=== PATIENT | female | born 1975 | race Caucasian/White ===

== ENCOUNTER 2019-08-04 17:31 | Emergency (ER) | payer BC, OTHER ==
[2019-08-04 17:37] VITALS: BP 122/101
[2019-08-04] MEDS ORDERED: OXYCODONE-ACETAMINOPHEN 5-325 MG TABLET PO ONE (18:07)
--- NOTE | 2019-08-04 18:09 | ER Document Report ---
HPI - HPI Time Seen by Provider: 08/04/19 17:59 Pain Level: 5 Notes: 43-year-old female patient requesting medication refill on her oxycodone. Patient reports she takes 20 mg 4 times daily. She states that she usually sees pain management for this. States she is in between pain management doctors. Denies any medical complaints today. - REPRODUCTIVE Reproductive: DENIES: : Past Medical History - General Information source: Patient - Social History Smoking Status: Never Smoker Family History: Reviewed & Not Pertinent Patient has suicidal ideation: No Patient has homicidal ideation: No - Medical History Medical History: Negative Surgical Hx: Negative - Immunizations Immunizations up to date: Yes Vertical Provider Document - CONSTITUTIONAL Notes: PHYSICAL EXAMINATION: GENERAL: Well-appearing, well-nourished and in no acute distress. HEAD: Atraumatic, normocephalic. EYES: Pupils equal round extraocular movements intact, conjunctiva are normal. ENT: Nares patent NECK: Normal range of motion LUNGS: No respiratory distress Musculoskeletal: Normal range of motion NEUROLOGICAL: Normal speech, normal gait. PSYCH: Normal mood, normal affect. SKIN: Warm, Dry, normal turgor, no rashes or lesions noted. Course - Re-evaluation Re-evalutation: Patient appears well, nontoxic. I discussed our chronic pain policy with the patient and explained to her that I cannot refill controlled substances. She verbalized understanding and agreement with this. Patient will be discharged home at this time. - Vital Signs Vital signs: Temp Pulse Resp BP Pulse Ox 97.8 F 101 H 18 122/101 H 100 08/04/19 17:36 08/04/19 17:36 08/04/19 17:36 08/04/19 17:36 08/04/19 17:36 Discharge - Discharge Clinical Impression: Encounter for medication refill Condition: Stable Disposition: HOME, SELF-CARE Additional Instructions: Unfortunately we are unable to refill controlled medications here in the emergency department. Please follow-up with your pain management physician. Referrals: FRED,NO [NO LOCAL MD] - Follow up as needed
== END 2019-08-04 18:14 | disposition home or self-care (01) ==
LOC: ER 17:31
DX: Z76.0 Encounter for issue of repeat prescription (principal)
CPT/HCPCS: 99281

== ENCOUNTER 2020-02-10 21:15 | Emergency (ER) | payer BC, OTHER ==
[2020-02-10 21:32] VITALS: BP 125/77
[2020-02-10] MEDS ORDERED: ONDANSETRON 4 MG TAB.RAPDIS PO ONE (22:16)
[2020-02-10] MEDS ORDERED: DIAZEPAM 5 MG TABLET PO ONE (22:17)
[2020-02-10] MEDS ORDERED: MORPHINE SULFATE 10 MG/ML INJ IM ONE (22:17)
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
[2020-02-11] MEDS ORDERED: HYDROMORPHONE HCL INJ/PF 2 MG/ML AMPULE IM ONE (00:42)
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
== END 2020-02-11 01:25 | disposition home or self-care (01) ==
LOC: ER 21:15
DX: S16.1XXA Strain of muscle, fascia and tendon at neck level, initial encounter (principal); S39.012A Strain of muscle, fascia and tendon of lower back, initial encounter; V44.5XXA Car driver injured in collision with heavy transport vehicle or bus in traffic accident, initial encounter; M47.816 Spondylosis without myelopathy or radiculopathy, lumbar region; M06.9 Rheumatoid arthritis, unspecified; Z79.891 Long term (current) use of opiate analgesic; Z79.899 Other long term (current) drug therapy; Z79.82 Long term (current) use of aspirin; F17.200 Nicotine dependence, unspecified, uncomplicated
CPT/HCPCS: 99285; 96372; 72110; 72125; S0119; J1170

== ENCOUNTER 2020-03-03 08:27 | Emergency (ER) | payer BC, OTHER ==
[2020-03-03] MEDS ORDERED: PREDNISONE 20 MG TABLET PO ONE (10:24)
[2020-03-03] MEDS ORDERED: IPRATROPIUM/ALBUTEROL 0.5-2.5 MG/3 ML AMPUL NEB ONE (10:24)
--- NOTE | 2020-03-03 10:26 | ER Document Report ---
ED Respiratory Problem - General Chief Complaint: Cough Stated Complaint: COUGH, CONGESTION, WEAKNESS, LOSS OF TATSTE/SMELL Time Seen by Provider: 03/03/20 10:01 Primary Care Provider: JAIR GONZALES MD [CONVERSION] - Follow up as needed Mode of Arrival: Ambulatory Information source: Patient Notes: Patient presents complaining of cough and cold symptoms for the past week. Patient states that her spouse had similar symptoms last week and had negative Covid and flu testing recently. Patient states she has had a temperature as high as 99.9 last week. Patient has a history of rheumatoid arthritis and takes Humira. Patient states her cough has been occasionally productive. Patient complains of generalized fatigue. Patient denies any history of asthma or COPD. Patient is 1/2 pack/day smoker for 30 years. - HPI Patient complains to provider of: Cough. No: Asthma, COPD Onset: Last week Duration: Continuous Quality of pain: Achy Pain Level: 1 Cough: Productive Sputum amount: Small Sputum color: White At home treatment: denies: Bronchodilators Associated symptoms: Congestion, Cough, Wheezing. denies: Bloody cough, Chest pain/discomfort, Fever Similar symptoms previously: Yes - Bronchitis Recently seen / treated by doctor: No - Related Data Allergies/Adverse Reactions: naproxen Adverse Reaction (Mild, Verified 03/03/20 08:53) tramadol [From [facility]] Adverse Reaction (Mild, Verified 03/03/20 08:53) Home Medications: humeria. prevastation. levothyrozine. asa. 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 denies: Fever EENT: Nose congestion. denies: Throat pain Cardiovascular: No symptoms reported. denies: Chest pain Respiratory: Cough, Short of breath, Sputum, Wheezing. denies: Hemoptysis Gastrointestinal: No symptoms reported. denies: Abdominal pain, Vomiting Genitourinary: No symptoms reported Female Genitourinary: No symptoms reported Musculoskeletal: No symptoms reported. denies: Back pain Skin: No symptoms reported Hematologic/Lymphatic: No symptoms reported Neurological/Psychological: No symptoms reported Physical Exam - Vital signs Vitals: Temp Pulse Resp BP Pulse Ox 98.1 F 86 18 124/73 96 03/03/20 08:33 03/03/20 08:33 03/03/20 08:33 03/03/20 08:33 03/03/20 08:33 - Notes Notes: PHYSICAL EXAMINATION: GENERAL: Well-appearing and in no acute distress. HEAD: Atraumatic, normocephalic. EYES: sclera anicteric, conjunctiva are normal. ENT:, Moist mucous membranes. NECK: Normal range of motion, supple without lymphadenopathy LUNGS: Diffuse wheezing bilaterally, occasionally productive cough, with rhonchi HEART: Regular rate and rhythm without murmurs EXTREMITIES: Normal range of motion, no pitting edema. No cyanosis. BACK: No CVA tenderness NEUROLOGICAL: Cranial nerves grossly intact. Normal speech. Normal gait. PSYCH: Normal mood, normal affect. SKIN: Warm, Dry, normal turgor, no rashes or lesions noted Course - Re-evaluation Re-evalutation: 03/03/20 12:12 Patient continues with scattered wheezes that are improved prior to nebulizer administration. Patient with good air movement bilaterally. Patient with stable vital signs at this time. Patient is a smoker. Discussed smoking cessation with patient. Covid test is pending at this time. The patient was evaluated during the global Covid 19 pandemic, and that diagnosis was suspected/considered upon their initial presentation. Their evaluation, treatment and testing was consistent with current guidelines for patients who present with complaints or symptoms that may be related to Covid 19. Patient presents with upper respiratory symptoms worrisome for possible Covid 19. Patient does not have emergency worrying symptoms such as difficulty breathing, shortness of breath, chest pain, pressure, confusion or cyanosis. Patient appears suitable for discharge as vital signs are stable and patient is nontoxic in appearance. Good return precautions have been discussed with patient, patient verbalized understanding and is agreeable with discharge plan of care at this time. 03/03/20 12:14 Patient will be placed on antibiotic given concerns about possible COPD exacerbation at this time although patient has never been formally diagnosed with COPD. Patient also is on Humira. Good return precautions discussed with patient. Patient also encouraged to speak with her property field inspector regarding her medication regimen at this time given her continued upper respiratory symptoms. - Vital Signs Vital signs: Temp Pulse Resp BP Pulse Ox 98.3 F 94 20 113/71 93 03/03/20 12:04 03/03/20 12:04 03/03/20 12:04 03/03/20 12:04 03/03/20 12:04 - Laboratory Laboratory results interpreted by me: Labs- All tests 24 hr 03/03/20 10:30 Influenza A (Rapid) NEGATIVE Influenza B (Rapid) NEGATIVE - Diagnostic Test Radiology reviewed: Image reviewed, Reports reviewed Discharge - Discharge Clinical Impression: Encounter for screening laboratory testing for COVID-19 virus, Cough Upper respiratory infection Qualifiers: URI type: unspecified URI Qualified Code(s): J06.9 - Acute upper respiratory infection, unspecified Condition: Stable Disposition: HOME, SELF-CARE Instructions: COVID-19 Guidance for Persons Under Investigation, Doxycycline ([facility]), Inhaled Bronchodilators ([facility]), Steroid Medication, Upper Respiratory Ill ness ([facility]) Additional Instructions: Return immediately for any new or worsening symptoms Followup with your primary care provider, call tomorrow to make a followup appointment Follow-up with your property field inspector to discuss your medication regimen Prescriptions: Prednisone [Deltasone 20 mg Tablet] 3 tab PO DAILY 4 Days #12 tablet Doxycycline Hyclate 100 mg PO BID #20 tablet. Inhaler,Assist Device,Accesory [Optichamber] 1 each MC Q4 PRN #1 each PRN Reason: Albuterol Sulfate [Proair Hfa Inhalation Aerosol 8.5 gm Mdi] 2 puff IH Q4 PRN #1 mdi PRN Reason: Benzonatate [Tessalon Perles 100 mg Capsule] 100 mg PO ASDIR PRN #30 capsule PRN Reason: Referrals: JAIR GONZALES MD [CONVERSION] - Follow up as needed
[2020-03-03] MEDS: ALBUTEROL SULFATE 0.083% NEB 2.5 MG/3 ML AMPUL NEB SCH ×2 (11:06→11:29)
--- NOTE | 2020-03-03 11:07 | RADIOLOGY REPORT (SQ) ---
EXAM DESCRIPTION: CHEST SINGLE VIEW IMAGES COMPLETED DATE/TIME: 03/03/2020 10:54 am REASON FOR STUDY: cough COMPARISON: None. EXAM PARAMETERS: NUMBER OF VIEWS: One view. TECHNIQUE: Single frontal radiographic view of the chest acquired. RADIATION DOSE: NA LIMITATIONS: None. FINDINGS: LUNGS AND PLEURA: No opacities, masses or pneumothorax. No pleural effusion. MEDIASTINUM AND HILAR STRUCTURES: No masses. Contour normal. HEART AND VASCULAR STRUCTURES: Heart normal in size. Normal vasculature. BONES: No acute findings. HARDWARE: None in the chest. OTHER: No other significant finding. IMPRESSION: NO ACUTE RADIOGRAPHIC FINDING IN THE CHEST. TECHNICAL DOCUMENTATION: JOB ID: [id number] 2010 [employer]- All Rights Reserved Reading location - IP/workstation name: [email or web address]
[2020-03-03 11:26] LABS: A TYPE INFLUENZA AG NEGATIVE (NEGATIVE); B INFLUENZA AG NEGATIVE (NEGATIVE)
[2020-03-03 12:06] VITALS: BP 113/71
== END 2020-03-03 12:34 | disposition home or self-care (01) ==
LOC: ER 08:27
DX: J06.9 Acute upper respiratory infection, unspecified (principal); R53.1 Weakness; Z20.828 Contact with and (suspected) exposure to other viral communicable diseases
CPT/HCPCS: 94640 ×2; 99285; 87804; 71045; U0003; J7512; J7613; C9803; 87635

== ENCOUNTER 2020-06-06 15:48 | Emergency (ER) | payer BC, OTHER ==
--- NOTE | 2020-06-06 16:02 | ER Document Report ---
ED Medical Screen (RME) - General Chief Complaint: Abdominal Pain Stated Complaint: LOWER ABDOMINAL PAIN Time Seen by Provider: 06/06/20 15:56 Primary Care Provider: MISSY GONZALES MD [Primary Care Provider] - Follow up as needed Mode of Arrival: Ambulatory Information source: Patient Notes: 44-year-old female presented to ED for complaint of right lower abdominal pain since a.m. She states she had menstrual-like cramps this morning got worse and worsening felt like she was going to throw up. States she cannot be having menstrual cramps because she has had a hysterectomy. She is alert oriented respirations regular nonlabored speaking in full sentences. She states she does have severe right lower quadrant abdominal pain. I have greeted and performed a rapid initial assessment of this patient. A comprehensive ED assessment and evaluation of the patient, analysis of test results and completion of medical decision making process will be conducted by an additional ED providers. - Related Data Allergies/Adverse Reactions: naproxen Adverse Reaction (Mild, Verified 03/03/20 08:53) tramadol [From [facility]] Adverse Reaction (Mild, Verified 03/03/20 08:53) Past Medical History - Social History Frequency of alcohol use: Occasional Pulmonary Medical History: Reports: Hx Bronchitis Denies: Hx Asthma, Hx COPD Endocrine Medical History: Reports: Hx Hypothyroidism Musculoskeltal Medical History: Reports Hx Arthritis - Rheumatoid arthritis Psychiatric Medical History: Reports: Hx Anxiety Past Surgical History: Reports: Hx Cholecystectomy, Hx Hysterectomy, Hx Orthopedic Surgery, Hx Tonsillectomy - Immunizations Immunizations up to date: Yes Physical Exam - Vital signs Vitals: Temp Pulse Resp BP Pulse Ox 98.4 F 98 18 117/80 98 06/06/20 15:54 06/06/20 15:54 06/06/20 15:54 06/06/20 15:54 06/06/20 15:54 Course - Vital Signs Vital signs: Temp Pulse Resp BP Pulse Ox 98.4 F 98 18 117/80 98 06/06/20 15:54 06/06/20 15:54 06/06/20 15:54 06/06/20 15:54 06/06/20 15:54 Doctor's Discharge - Discharge Referrals: MISSY GONZALES MD [Primary Care Provider] - Follow up as needed
[2020-06-06] MEDS ORDERED: ONDANSETRON HCL INJ/PF 4 MG/2 ML SDV IV ONE (16:17)
[2020-06-06] MEDS ORDERED: MORPHINE SULFATE 10 MG/ML INJ IV ONE (16:18)
--- NOTE | 2020-06-06 16:23 | ER Document Report ---
ED GI/ - General Chief Complaint: Abdominal Pain Stated Complaint: LOWER ABDOMINAL PAIN Time Seen by Provider: 06/06/20 15:56 Primary Care Provider: MISSY GONZALES MD [Primary Care Provider] - Follow up as needed Mode of Arrival: Ambulatory Notes: CHIEF COMPLAINT: Right lower quadrant pain today HPI: 44-year-old female presenting to the emergency department today for complaints of right lower quadrant pain that began today. No vomiting. Started out as cramping across the lower abdomen now focal in the right lower quadrant. Patient reports history of prior hysterectomy with right oophorectomy, also cholecystectomy. Has not had fever. [place] fine yesterday. ROS: See HPI - all other systems were reviewed and are otherwise negative Constitutional: no fever Eyes: no drainage, no blurred vision ENT: no runny nose, no sore throat Cardiovascular: no chest pain Resp: no SOB, no cough GI: no vomiting, no diarrhea, + abdominal pain : no dysuria Integumentary: no rash Allergy: no hives Musculoskeletal: no extremity pain or swelling Neurological: no numbness/tingling, no weakness MEDICATIONS: I agree with the patient medications as charted by the RN. ALLERGIES: I agree with the allergies as charted by the RN. PAST MEDICAL HISTORY/PAST SURGICAL HISTORY: Reviewed and agree as charted by RN. SOCIAL HISTORY: Reviewed and agree as charted by RN. FAMILY HISTORY: No significant familial comorbid conditions directly related to patient complaint EXAM: Reviewed vital signs as charted by RN. CONSTITUTIONAL: Alert and oriented and responds appropriately to questions. Well -appearing; well-nourished HEAD: Normocephalic; atraumatic EYES: Conjunctivae clear, sclerae non-icteric ENT: normal nose; no rhinorrhea; moist mucous membranes NECK: Supple without meningismus CARD: RRR; no murmurs, no clicks, no rubs, no gallops; symmetric distal pulses RESP: Normal chest excursion without splinting or tachypnea; breath sounds clear and equal bilaterally; no wheezes, no rhonchi, no rales, pulse oximetry 98% on room air not hypoxic ABD/GI: Obese, normal bowel sounds; non-distended; soft, mild tenderness in the right lower quadrant on palpation, no rebound, no guarding; no palpable organomegaly or masses. BACK: The back appears normal and is non-tender to palpation, there is no CVA tenderness EXT: Normal ROM in all joints; non-tender to palpation; no cyanosis, no effusion s, no edema SKIN: Normal color for age and race; warm; dry; good turgor; no acute lesions noted NEURO: Moves all extremities equally; Motor and sensory function intact PSYCH: The patient's mood and manner are appropriate. Grooming and personal hygiene are appropriate. MDM: 44-year-old female right lower quadrant pain today. Initial screening labs and CT orders placed by triage process will provide pain management while awaiting labs and CT The patient was evaluated during the global COVID-19 pandemic and that diagnosis was suspected/considered upon their initial presentation. Their evaluation, treatment and testing was consistent with current guidelines for patients who present with complaints or symptoms that may be related to COVID-19 - Related Data Allergies/Adverse Reactions: morphine Allergy (Verified 06/06/20 17:29) naproxen Adverse Reaction (Mild, Verified 03/03/20 08:53) tramadol [From Ultram] Adverse Reaction (Mild, Verified 03/03/20 08:53) Past Medical History - General Information source: Patient - Social History Smoking Status: Current Every Day Smoker Frequency of alcohol use: Occasional Family History: Reviewed & Not Pertinent Pulmonary Medical History: Reports: Hx Bronchitis Denies: Hx Asthma, Hx COPD Endocrine Medical History: Reports: Hx Hypothyroidism Musculoskeletal Medical History: Reports Hx Arthritis - Rheumatoid arthritis Psychiatric Medical History: Reports: Hx Anxiety Past Surgical History: Reports: Hx Cholecystectomy, Hx Hysterectomy, Hx Orthopedic Surgery, Hx Tonsillectomy - Immunizations Immunizations up to date: Yes Physical Exam - Vital signs Vitals: Temp Pulse Resp BP Pulse Ox 98.4 F 98 18 117/80 98 06/06/20 15:54 06/06/20 15:54 06/06/20 15:54 06/06/20 15:54 06/06/20 15:54 Course - Re-evaluation Re-evalutation: 06/06/20 16:46 Patient began complaining of itching and rash after receiving morphine. She does have some urticaria to the right arm. No respiratory complaints. Lung sounds are clear to auscultation no angioedema. Will give steroids, antihistamines for possible allergic reaction to morphine 06/06/20 19:32 I spoke with the patient at length about her results. 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 We spoke about the many different reasons that she did have abdominal pain. She does not appear to have an obstructive issue, an infectious or surgical issue specifically. This may be as simple as constipation. She follows at [facility] and sees Dr. Edwards gastroenterology. She will call them tomorrow to schedule close follow-up. I will keep patient on Bentyl for abdominal spasm, Colace or MiraLAX for possible constipation. - Vital Signs Vital signs: Temp Pulse Resp BP Pulse Ox 98.4 F 98 18 117/80 98 06/06/20 15:54 06/06/20 15:54 06/06/20 15:54 06/06/20 15:54 06/06/20 15:54 - Laboratory Results Result Diagrams: 06/06/20 16:30 06/06/20 16:30 Laboratory Results Interpreted: 06/06/20 06/06/20 16:30 16:30 RDW 14.2 H Sodium 136.2 L AST 43 H ALT 40 H Critical Laboratory Results Reviewed: No Critical Results - Radiology Results Critical Radiology Results Reviewed: No Critical Results Discharge - Discharge Clinical Impression: Abdominal pain, RLQ Condition: Stable Disposition: HOME, SELF-CARE Additional Instructions: Follow-up with your primary 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 List morphine as an allergy. There was not a definitive finding on your CT scan to suggest a cause for your abdominal pain in the right lower quadrant region. Take the medications as prescribed to help with abdominal pain and spasm as well as possible constipation issues. Prescriptions: Dicyclomine HCl [Bentyl 20 mg Tablet] 20 mg PO Q6H PRN #20 tablet PRN Reason: Docusate Sodium [Colace 100 mg Capsule] 100 mg PO DAILY #14 capsule Referrals: MISSY GONZALES MD [Primary Care Provider] - Follow up as needed
[2020-06-06] MEDS ORDERED: DIPHENHYDRAMINE HCL 50 MG/ML VIAL IV ONE (16:42)
[2020-06-06] MEDS ORDERED: METHYLPREDNISOLONE INJ 125 MG/2 ML SDV ONE (16:43)
[2020-06-06] MEDS ORDERED: FAMOTIDINE INJ/PF 20 MG/2 ML SDV IV ONE ×2 (16:43→16:44)
[2020-06-06] MEDS ORDERED: DIPHENHYDRAMINE HCL 50 MG/ML VIAL ONE (16:43)
[2020-06-06] MEDS ORDERED: METHYLPREDNISOLONE INJ 125 MG/2 ML SDV IV ONE (16:43)
[2020-06-06 17:12] LABS: ABSOLUTE BASOPHILS # (AUTO) 0.1 10^3/uL (0.0-0.2); ABSOLUTE EOSINOPHILS # (AUTO) 0.3 10^3/uL (0.0-0.6); ABSOLUTE LYMPHOCYTES (AUTO) 3.3 10^3/uL (0.5-4.7); ABSOLUTE MONOCYTES (AUTO) 0.6 10^3/uL (0.1-1.4); BASOPHILS % (AUTO) 1.3 % (0-2); EOSINOPHILS % (AUTO) 3.9 % (0-6); HEMOGLOBIN 12.5 g/dL (12.0-15.5); LYMPHOCYTES % (AUTO) 39.4 % (13-45); MEAN CORPUSCULAR HEMOGLOBIN 30.2 pg (27.0-33.4); MEAN CORPUSCULAR HGB CONC 33.9 g/dL (32.0-36.0); MEAN CORPUSCULAR VOLUME 89 fl (80-97); MONOCYTES % (AUTO) 7.2 % (3-13); PLATELET COUNT 325 10^3/uL (150-450); RED BLOOD COUNT 4.15 10^6/uL (3.72-5.28); RED CELL DISTRIBUTION WIDTH 14.2 % (11.5-14.0); SEGMENTED NEUTROPHILS % (AUTO) 48.2 % (42-78); TOTAL CELLS COUNTED % (AUTO) 100 %; WHITE BLOOD COUNT 8.3 10^3/uL (4.0-10.5)
[2020-06-06 17:32] LABS: ALKALINE PHOSPHATASE 86 U/L (38-126); ANION GAP 6 (5-19); ASPARTATE AMINO TRANSFERASE 43 U/L (14-36); BILIRUBIN,DIRECT 0.2 mg/dL (0.0-0.4); BILIRUBIN,TOTAL 0.2 mg/dL (0.2-1.3); BLOOD UREA NITROGEN 9 mg/dL (7-20); CARBON DIOXIDE 26 mmol/L (22-30); CHLORIDE 104 mmol/L (98-107); GLUCOSE 99 mg/dL (75-110); POTASSIUM 4.1 mmol/L (3.6-5.0); TOTAL PROTEIN 6.8 g/dL (6.3-8.2)
[2020-06-06 17:37] LABS: APPEARANCE,URINE CLEAR; BILIRUBIN,URINE NEGATIVE (NEGATIVE); COLOR,URINE YELLOW; GLUCOSE, URINE NEGATIVE (NEGATIVE); KETONES,URINE NEGATIVE (NEGATIVE); LEUKOCYTE ESTERASE,URINE NEGATIVE (NEGATIVE); NITRITE,URINE NEGATIVE (NEGATIVE); PROTEIN,URINE NEGATIVE (NEGATIVE); URINE SPECIFIC GRAVITY 1.011; UROBILINOGEN,URINE NEGATIVE mg/dL (<2.0)
--- NOTE | 2020-06-06 19:19 | RADIOLOGY REPORT (SQ) ---
EXAM DESCRIPTION: CT ABD/PELVIS ORAL ONLY IMAGES COMPLETED DATE/TIME: 06/06/2020 6:42 pm REASON FOR STUDY: Lower right abdominal pain COMPARISON: None. TECHNIQUE: CT scan of the abdomen and pelvis performed with oral contrast only. Images reviewed with lung, soft tissue, and bone windows. Reconstructed coronal and sagittal MPR images reviewed. All marky ges stored on PACS. All CT scanners at this facility use dose modulation, iterative reconstruction, and/or weight based d osing when appropriate to reduce radiation dose to as low as reasonably achievable (ALARA). [facility]: Dose Right [facility]: CareDose [facility]: Dose Right [facility]: Teradose 4D [facility]: [employer] RADIATION DOSE: CT Rad equipment meets quality standard of care and radiation dose reduction techniq ues were employed. CTDIvol: 16.2 mGy. DLP: 980 mGy-cm.mGy. LIMITATIONS: None. FINDINGS: LOWER CHEST: No significant findings. No nodules or infiltrates. NON-CONTRASTED LIVER, SPLEEN, ADRENALS: Evaluation limited by lack of IV contrast. No identified sign ificant masses. PANCREAS: No masses. No peripancreatic inflammatory changes. GALLBLADDER: Surgically absent. RIGHT KIDNEY AND URETER: No suspicious masses. Assessment limited by lack of IV contrast. No signif icant calcifications. No hydronephrosis or hydroureter. LEFT KIDNEY AND URETER: No suspicious masses. Assessment limited by lack of IV contrast. No signifi cant calcifications. No hydronephrosis or hydroureter. AORTA AND RETROPERITONEUM: No aneurysm. No retroperitoneal masses or adenopathy. BOWEL AND PERITONEAL CAVITY: A small amount of the oral contrast has reached the colon. There is no bowel obstruction. There are no dilated loops of bowel. No obvious bowel mass. APPENDIX: Surgically absent. PELVIS, BLADDER, AND ABDOMINAL WALL:No abnormal masses. No free fluid. Bladder normal. BONES: No significant findings. OTHER: No other significant finding. IMPRESSION: There are no acute findings in the abdomen or pelvis. COMMENT: Quality ID # [id number]: Final reports with documentation of one or more dose reduction techniques (e.g., Automated exposure control, adjustment of the mA and/or kV according to patient size, use of iterative reconstruction technique) TECHNICAL DOCUMENTATION: JOB ID: [id number] [email or web address] All Rights Reserved Reading location - IP/workstation name: [email or web address]
[2020-06-06] MEDS ORDERED: DICYCLOMINE HCL INJ 20 MG/2 ML AMPULE IM ONE (19:32)
[2020-06-06 20:01] VITALS: BP 110/79
== END 2020-06-06 20:01 | disposition home or self-care (01) ==
LOC: ER 15:48
DX: R10.31 Right lower quadrant pain (principal); F17.200 Nicotine dependence, unspecified, uncomplicated; Z90.710 Acquired absence of both cervix and uterus; Z90.49 Acquired absence of other specified parts of digestive tract
CPT/HCPCS: 99285; 96372; 96374; 96375; 36415; 87086; 83690; 85025; 80053; 81001; 74176; J0500; J1200; J2930; J2270; J2405; S0028